=== PATIENT | male | born 1975 | race Caucasian/White ===

== ENCOUNTER 2016-06-22 16:06 | Inpatient (IN) | payer MEDICAID, OTHER ==
[~2016-06-22] VITALS: Ht 175.3 cm; Wt 107.7 kg
[2016-06-22 20:12] VITALS: BP 141/86
[2016-06-22] MEDS ORDERED: HALOPERIDOL 5 MG TABLET PO PRN (20:15)
[2016-06-22] MEDS ORDERED: LORazepam 2 MG TABLET PO PRN (20:15)
[2016-06-22] MEDS ORDERED: ZOLPIDEM TARTRATE 10 MG TABLET PO PRN (20:15)
[2016-06-22] MEDS ORDERED: INFLUENZA VIRUS VACCINE QVS 2016-17 (3YR+)/PF 60 MCG/0.5 ML SYRINGE IM ONE (20:30)
[2016-06-22] MEDS ORDERED: SERT100T12 PO (20:52)
[2016-06-23 00:15] VITALS: BP 128/82
[2016-06-23 07:56] LABS: BASOPHILS # (AUTO) 0.04 K/uL (0.00-0.20); BASOPHILS % (AUTO) 0.8 % (0.0-2.0); EOSINOPHILS # (AUTO) 0.15 K/uL (0.00-0.70); EOSINOPHILS % (AUTO) 2.66 % (1.0-6.0); HEMATOCRIT 43.2 % (41-53); HEMOGLOBIN 14.5 g/dL (13.5-17.5); LYMPHOCYTES # (AUTO) 2.4 K/uL (1.0-4.8); LYMPHOCYTES % (AUTO) 42.6 % (22.0-44.0); MEAN CORPUSCULAR HEMOGLOBIN 29.4 pg (26.0-34.0); MEAN CORPUSCULAR HGB CONC 33.6 G/dL (31.0-37.0); MEAN CORPUSCULAR VOLUME 88 fL (80-100); MONOCYTES # (AUTO) 0.6 K/uL (0.1-1.0); NEUTROPHILS # (AUTO) 2.4 K/uL (1.8-7.7); PLATELET COUNT (AUTO) 183 K/uL (150-450); RED BLOOD CELL COUNT(AUTO) 4.93 MIL/uL (4.50-5.90); RED CELL DISTRIBUTION WIDTH 13.9 % (11.5-14.5); WHITE BLOOD COUNT (AUTO) 5.6 K/uL (4.5-11.0)
[2016-06-23 08:10] LABS: ALANINE AMINOTRANSFERASE 172 U/L (12-78); ALBUMIN 3.5 g/dL (3.4-5.0); ANION GAP 8 mmol/L (8-16); ASPARTATE AMINOTRANSFERASE 63 U/L (15-37); BILIRUBIN,TOTAL 0.6 mg/dL (0.1-1.0); CALCIUM, TOTAL 8.2 mg/dL (8.8-10.5); CARBON DIOXIDE 27 mmol/L (22-29); CHLORIDE 106 mmol/L (98-107); CHOL/HDL RATIO 5.3 (4.2-7.3); CREATININE 0.94 mg/dL (0.60-1.30); GLOMERULAR FILTR. RATE CALC > 60 mL/min (>60); POTASSIUM 4.6 mmol/L (3.5-5.1); SODIUM SERUM 141 mmol/L (136-145); UREA NITROGEN, BLOOD 12 mg/dL (7-18)
[2016-06-23 08:52] VITALS: BP 129/81
[2016-06-23 16:00] VITALS: BP 125/96
[2016-06-23] MEDS: TRIAMCINOLONE 0.1% 15 GM OINTMENT TP SCH (22:24)
[2016-06-24 06:36] VITALS: BP 133/93
[2016-06-24] MEDS: TRIAMCINOLONE 0.1% 15 GM OINTMENT TP SCH (08:41)
[2016-06-24 08:49] VITALS: BP 142/82
== END 2016-06-24 11:30 | disposition home or self-care (01) | DRG 750 ==
LOC: B2S 20:49 → EDSTATUS 21:32
PROVIDERS: ADMIT Psychiatry & Neurology Psychiatry; ATTEND Psychiatry & Neurology Psychiatry
DX: F25.9 Schizoaffective disorder, unspecified (principal); R45.851 Suicidal ideations; R74.0 Nonspecific elevation of levels of transaminase and lactic acid dehydrogenase [LDH]; F32.9 Major depressive disorder, single episode, unspecified; E78.5 Hyperlipidemia, unspecified; F99 Mental disorder, not otherwise specified; Z28.21 Immunization not carried out because of patient refusal